=== PATIENT | female | born 1930 | race Caucasian/White ===

== ENCOUNTER 2020-05-03 00:09 | Emergency (ER) | payer OTHER ==
[~2020-05-03] VITALS: Ht 170.2 cm; Wt 47.6 kg
--- NOTE | 2020-05-03 00:28 | NUR ---
PATIENT CAME TO ER BED 9 [facility] FROM [facility] C/O POSTERIOR SCALP LACERATION 4CM HORIZONTALLY S/P FALL. PATIENT HAS A CURRENTLY DENIES HAVING ANY PAIN. PATIENT STATES THAT SHE IS COLD. WARM BLANKET PROVIDED TO THE PATIENT. PATIENT IS AAOX4. NO SOB. BREATHING EVENLY AND UNLABORED ON ROOM AIR. CONNECTED TO THE MONITOR.
--- NOTE | 2020-05-03 00:58 | NUR ---
patient taken to CT
[2020-05-03] MEDS ORDERED: TDAP [DIPH/PERTUSSIS/TET] 0.5 ML VIAL IM ONE ×2 (01:00→01:03)
[2020-05-03] MEDS ORDERED: SODIUM BICARBONATE 5 ML VIAL MC ONE (01:00)
[2020-05-03] MEDS ORDERED: LIDOCAINE 1%-EPI 1:100,000 20 ML VIAL IJ ONE (01:00)
[2020-05-03] MEDS ORDERED: LIDOCAINE 1%-EPI 1:100,000 20 ML VIAL ONE (01:03)
[2020-05-03] MEDS ORDERED: SODIUM BICARBONATE 5 ML VIAL ONE (01:03)
[2020-05-03] MEDS ORDERED: LIDOCAINE HCL/PF 2 % 5ML SDV 5 ML VIAL ONE (01:14)
--- NOTE | 2020-05-03 01:24 | NUR ---
5 RUSTY GIVEN BY MD TO THE POSTERIOR SCALP
[2020-05-03] MEDS ORDERED: LIDOCAINE HCL/PF 2 % 5ML SDV 5 ML VIAL TP ONE (01:30)
--- NOTE | 2020-05-03 02:27 | NUR ---
[facility] CALLED
--- NOTE | 2020-05-03 02:50 | NUR ---
[facility] WILL SET UP TRANSPORTATION TO RETURN TO [facility]. ETA 1 HR
--- NOTE | 2020-05-03 03:52 | NUR ---
REPORT GIVEN TO TRANSPORT TEAM FOR [facility]. AND TRANSFERRING RESPONSIBILITIES.
[2020-05-03 03:53] VITALS: BP 118/76
== END 2020-05-03 03:53 | disposition home or self-care (01) ==
LOC: ER 00:13
DX: S01.01XA Laceration without foreign body of scalp, initial encounter (principal); R29.6 Repeated falls; F03.90 Unspecified dementia, unspecified severity, without behavioral disturbance, psychotic disturbance, mood disturbance, and anxiety; I10 Essential (primary) hypertension; Z88.0 Allergy status to penicillin; Z88.2 Allergy status to sulfonamides; Z88.1 Allergy status to other antibiotic agents; Z88.5 Allergy status to narcotic agent; Z88.8 Allergy status to other drugs, medicaments and biological substances; Z91.013 Allergy to seafood; W01.0XXA Fall on same level from slipping, tripping and stumbling without subsequent striking against object, initial encounter; Y93.89 Activity, other specified; Y92.89 Other specified places as the place of occurrence of the external cause; Y99.8 Other external cause status
CPT/HCPCS: 12002; 70450; 90471; 90715; 99284; J3490 ×2